=== PATIENT | female | born 1950 | race Caucasian/White ===

== ENCOUNTER 2021-05-08 10:29 | Observation (INO) | payer MEDICARE ==
[~2021-05-08] VITALS: Ht 163.8 cm; Wt 59.3 kg
[2021-05-08] VITALS (11 sets, daily range): BP systolic 85–151; BP diastolic 47–89; PULSE 70–90; TEMP 97.3–98.4
[~2021-05-08 10:29] MED LIST: ADVIL200 MG PO; EUTHYROX25 MCG PO; PRINIVIL20 MG PO; TYLENOL 500MG500 MG PO
--- NOTE | 2021-05-08 17:27 | NUR ---
Patient alert and oriented, answers questions appropriately. See assessment. Dressing to bilateral breast CDI. LACIE to bilateral breast to compression, scant amount of serosanguinous drainage noted. Post op exercises reviewed with patient. No c/o at this time.
[2021-05-09] VITALS (7 sets, daily range): BP systolic 79–108; BP diastolic 47–53; PULSE 66–87; TEMP 97.4–97.8
--- NOTE | 2021-05-09 00:01 | NUR ---
Patient with B/P 85/49, Call placed to Dr. Galvez NON: LR @100ml/hr. Continue to monitor. Patient is resting quietly, no c/o pain, call mcqueen w/i reach. Respirations even and unlabored, LACIE drains with bulb compression in use.
[2021-05-09 08:24] LABS: HEMATOCRIT 27.5 % (37.0-47.0); HEMOGLOBIN 8.8 g/dl (12.5-16.0)
--- NOTE | 2021-05-09 08:26 | NUR ---
PT RESTING IN BED. DENIES PAIN OR NEEDS. ATE 100 % OF BREAKFAST. BP IMPORVED BUT HELD LISINOPRIL FOR LOW BP. PT IS A\O X3. LEFT ARM WITH LYMPHADEMA PT REPORTS THAT IT IS LESS SWOLLEN THAN BASELINE.
--- NOTE | 2021-05-09 10:39 | NUR ---
Initial visit; Patient thanked [facility] for looking in on her, visiting and offering prayer and God's blessings. Mission Planner will look in on [place] while she is our patient.
--- NOTE | 2021-05-09 16:42 | NUR ---
Cylindrical Mixer met with patient to discuss discharge planning. Patient lives alone in [place] and sees Dr. Amina Broussard for primary care. Patient obtains medications from [facility] in with no difficulties. Patient has a cane and walker at home that she normally does not use, but reports she may need to start utilizing. Patient is normally independent with ADLS and reports she has [facility] for nursing. Patient states she will need an increase in visits after this hospital stay. KEVON spoke with RN, Chente about new orders for Home Health. Patient states her friend, Yomaira Domingo is DPOA-HC however there is no copy in EMR. Patient states [facility] has a copy. KEVON left message for [facility] [place]. KEVON faxed clinical updates to Fior at [facility] (fax#[phone]). Discharge Plan: Home with [facility]
--- NOTE | 2021-05-09 20:00 | NUR ---
Pt assisted to bathroom, voids and back to bed. Takes scheduled Ibuprofen for left breast pain. Has incisions to rt and left breast, sutures intact. Has LACIE drain to left chest, drsg changed at this time. Rt LACIE drain to bulb suction, both have sanguinous drainage. IVF to rt hand infusing without problem. Is alert and oriented x4.
[2021-05-10 03:32] VITALS: BP 93/47; PULSE 79; TEMP 97.5
--- NOTE | 2021-05-10 05:34 | NUR ---
Pt takes dose of PRN Ibuprofen 200mg po for left breast pain.
[2021-05-10 06:57] LABS: HEMOGLOBIN 7.1 g/dl (12.5-16.0)
[2021-05-10 08:00] VITALS: BP 86/70; PULSE 82; TEMP 97.6
--- NOTE | 2021-05-10 09:37 | NUR ---
PT SITTING UP IN BED EATING BREAKFAST. ASSESSMENTS COMPLETE. PT REPORTING MILD PAIN /. SCHEDULED MEDICATION GIVEN ORDERED. PLAN ON DISCHARGE LATER TODAY WITH HOME HEALTH TO MANAGE NEEDS.
[2021-05-10 12:00] VITALS: BP 109/51; PULSE 95; TEMP 98.1
--- NOTE | 2021-05-10 15:20 | NUR ---
Clinical updates faxed to [facility]
[2021-05-10 15:40] VITALS: BP 91/52; PULSE 85; TEMP 98.2
--- NOTE | 2021-05-10 17:33 | NUR ---
PT HAS HAD SEVERAL TRIPS TO BR THIS PM. VOIDING WELL WITH EACH TRIP. DARK LOOSE STOOL ON LATEST TRIP WITH CLEAR YELLOW URINE.
[2021-05-10 19:43] VITALS: BP 115/64; PULSE 83; TEMP 97.7
--- NOTE | 2021-05-10 21:30 | NUR ---
Pt. sitting up in bed. Pt. is A&OX3, assessment complete. Bilateral chest incisions with steristrips well approximated. Bilateral LACIE drains noted with minimal bloody drainage. Pt. denies pain or other needs, call light within reach.
[2021-05-10 23:16] VITALS: BP 102/52; PULSE 64; TEMP 98
[2021-05-11 04:21] VITALS: BP 117/55; PULSE 62; TEMP 97.9
[2021-05-11 07:49] LABS: HEMATOCRIT 24.2 % (37.0-47.0); HEMOGLOBIN 7.5 g/dl (12.5-16.0)
[2021-05-11 10:59] VITALS: BP 146/77; PULSE 71; TEMP 98.1
--- NOTE | 2021-05-11 11:15 | NUR ---
Patient ready for discharge home. rounded this am and orders obtained. Patient tolerated breakfast. Patient brother taking her home. Patient has already spoken to her home health nurse who will assist with LACIE drains at home & will be there this afternoon. New dressings applied to drain sites & Lacie drain to compression. Record monitoring sheet provided for patient. Patient provided with education regaurding when to call the doctor & signs & symptoms of education. Patient aware of follow up appt & knows to hold her lisinopril. Patient denies any other questions or concerns.
--- NOTE | 2021-05-11 11:17 | NUR ---
DC orders to [facility] services and notified of dc.
== END 2021-05-11 11:15 | disposition home health service (06) ==
LOC: SDCO 10:29 → SURG 17:24 → SDCO 05-09 14:07 → SURG 05-09 14:08
PROVIDERS: ADMIT Surgery
DX: C50.912 Malignant neoplasm of unspecified site of left female breast (principal); N62 Hypertrophy of breast; I10 Essential (primary) hypertension; M19.90 Unspecified osteoarthritis, unspecified site; E03.9 Hypothyroidism, unspecified; Z79.890 Hormone replacement therapy; Z79.899 Other long term (current) drug therapy
CPT/HCPCS: OP; A4648; G0378; J0690; J1100; J1170; J2250; J2405; J2704; J2795; J3010; J7120